=== PATIENT | male | born 1950 | race Caucasian/White ===

== ENCOUNTER 2025-02-02 06:53 | Day surgery (SDC) | payer MEDICARE, OTHER ==
[2025-02-02] MEDS: Lactated Ringers 1,000 ML IV SCH (07:28)
[2025-02-02] MEDS ORDERED: Propofol 200 MG/20 ML SDV ONE ×2 (07:31→09:05)
[2025-02-02] MEDS ORDERED: fentaNYL 50 MCG/ML SDV ONE (07:32)
== END 2025-02-02 10:16 | disposition home or self-care (01) ==
LOC: JP.SDS 06:53
PROVIDERS: ATTEND Surgery
DX: Z12.11 Encounter for screening for malignant neoplasm of colon (principal); D12.3 Benign neoplasm of transverse colon; K57.30 Diverticulosis of large intestine without perforation or abscess without bleeding; R19.5 Other fecal abnormalities; I10 Essential (primary) hypertension; Z88.8 Allergy status to other drugs, medicaments and biological substances; Z79.82 Long term (current) use of aspirin; Z79.899 Other long term (current) drug therapy
CPT/HCPCS: 00811; 45380; 88305; J2704; J3010; J7120